=== PATIENT | female | born 1985 | race Caucasian/White ===

== ENCOUNTER 2023-04-21 11:37 | Emergency (ER) | payer OTHER, MEDICARE ==
[~2023-04-21] VITALS: Ht 167.6 cm; Wt 44.8 kg
[~2023-04-21 11:37] MED LIST: CA C1TAB89 PO; LACT1CAP64 PO; METH-402 PO; MULT-1074 PO; THY60T PO
[2023-04-21 11:45] VITALS: TEMP 98
[2023-04-21 12:18] LABS: BILIRUBIN,URINE NEGATIVE (Neg); CLARITY,URINE CLEAR (Clear); COLOR,URINE STRAW (Yellow); GLUCOSE, URINE NEGATIVE (Neg); KETONES,URINE NEGATIVE (Neg); LEUKOCYTE ESTERASE ,URINE NEGATIVE (Neg); NITRITES, URINE NEGATIVE (Neg); OCCULT BLOOD,URINE NEGATIVE (Neg); PH,URINE 7.5 (4.8-8.0); PROTEIN,URINE NEGATIVE (Neg); UROBILINOGEN,URINE 0.2 E.U/dL (0.2-1.0)
[2023-04-21 12:19] LABS: URINE HCG NEGATIVE (NEG)
[2023-04-21 12:29] LABS: UA COLLECTION TYPE CLN CATCH MIDSTREAM
[2023-04-21 13:19] LABS: HEMOGLOBIN 13.5 g/dl (12.0-16.0); LYMPHOCYTES # (AUTO) 1.2 X10'3 (1.1-4.8); MONOCYTES # (AUTO) 0.3 X10'3 (0-0.9); NEUTROPHILS # (AUTO) 1.9 X10'3 (1.8-7.7); WHITE BLOOD COUNT 3.5 X10'3 (4.5-11.0)
[2023-04-21 13:21] LABS: BASOPHILS % (AUTO) 1.2 % (0-1); EOSINOPHILS % (AUTO) 0.4 % (0-6); HEMATOCRIT 40.3 % (35.0-45.0); MEAN CORPUSCULAR HEMOGLOBIN 31.5 PG (27.0-31.0); MEAN CORPUSCULAR HGB CONC 33.6 g/dL (33.0-36.5); MEAN CORPUSCULAR VOLUME 93.8 FL (78-98); MEAN PLATELET VOLUME 11.6 FL (7.4-10.4); MONOCYTES % (AUTO) 7.7 % (2-12); NEUTROPHILS % (AUTO) 55.7 % (42-75); PLATELET COUNT 165 X10'3 (140-440); RED CELL DISTRIBUTION WIDTH 12.8 % (11.5-14.5)
[2023-04-21 14:04] LABS: ALANINE AMINOTRANSFERASE 30 U/L (12-78); ALBUMIN 4.3 G/DL (3.4-5.0); ALBUMIN/GLOBULIN RATIO 1.1 (1.1-1.5); ALKALINE PHOSPHATASE 68 IU/L (46-116); ANION GAP 13 (8-16); ASPARTATE AMINO TRANSFERASE 29 U/L (10-37); BILIRUBIN,TOTAL 0.9 MG/DL (0.1-1.0); BLOOD UREA NITROGEN 9 MG/DL (7-18); BUN/CREATININE RATIO 13.6 (10.0-20.0); CHLORIDE 103 MMOL/L (99-107); CREATININE 0.66 MG/DL (0.40-0.90); GLUCOSE 84 MG/DL (70-104); LIPASE 35 U/L (16-77); POTASSIUM 3.9 MMOL/L (3.5-5.1); SODIUM 141 MMOL/L (135-145); TOTAL CARBON DIOXIDE 25.5 MMOL/L (24-32); TOTAL PROTEIN 8.2 G/DL (6.4-8.2); eCRCL 84 ML/MIN; eGFR > 90 ML/MIN
[2023-04-21] MEDS ORDERED: CefTRIAXone 2gm/D5W 50ml BAG 50 ML IV ONE ×2 (14:55→15:03)
[2023-04-21] MEDS ORDERED: azithromycin 250mg tablet PO ONE (14:55)
[2023-04-21 14:59] VITALS: BP 118/74; PULSE 63; RESP 16; O2SAT 100
[2023-04-21] MEDS: mag hydrox/Alum hydrox/simeth 30ml oral suspension PO ONE (14:59)
[2023-04-21] MEDS: LIDOcaine Viscous 15ml cup MM PRN (14:59)
[2023-04-21] MEDS ORDERED: LANS30CA37 PO (16:22)
[2023-04-21] MEDS: pantoprazole 40mg Tablet.DR PO ONE (16:41)
== END 2023-04-21 16:57 | disposition home or self-care (01) ==
LOC: ER 11:37
DX: K29.00 Acute gastritis without bleeding (principal); R10.13 Epigastric pain; Z79.899 Other long term (current) drug therapy
CPT/HCPCS: 36415; 76700; 80053; 81003; 81025; 83605; 83690; 85025; 87040; 99284

== ENCOUNTER 2023-05-11 21:37 | Emergency (ER) | payer OTHER, MEDICARE ==
[~2023-05-11] VITALS: Ht 167.6 cm; Wt 42.3 kg
[~2023-05-11 21:37] MED LIST changes: +LANS30CA37 PO
[2023-05-11 22:31] LABS: BASOPHILS # (AUTO) 0.1 X10'3 (0-0.2); BASOPHILS % (AUTO) 0.8 % (0-1); EOSINOPHILS % (AUTO) 0.6 % (0-6); HEMATOCRIT 36.8 % (35.0-45.0); HEMOGLOBIN 12.7 g/dl (12.0-16.0); LYMPHOCYTES # (AUTO) 2.2 X10'3 (1.1-4.8); LYMPHOCYTES % (AUTO) 27.5 % (21-51); MEAN CORPUSCULAR HEMOGLOBIN 31.4 PG (27.0-31.0); MEAN CORPUSCULAR HGB CONC 34.5 g/dL (33.0-36.5); MEAN CORPUSCULAR VOLUME 91.1 FL (78-98); MEAN PLATELET VOLUME 10.6 FL (7.4-10.4); MONOCYTES # (AUTO) 0.5 X10'3 (0-0.9); MONOCYTES % (AUTO) 5.7 % (2-12); NEUTROPHILS # (AUTO) 5.2 X10'3 (1.8-7.7); NEUTROPHILS % (AUTO) 65.4 % (42-75); PLATELET COUNT 173 X10'3 (140-440); RED BLOOD COUNT 4.04 X10'6 (4.20-5.60); RED CELL DISTRIBUTION WIDTH 12.7 % (11.5-14.5); WHITE BLOOD COUNT 7.9 X10'3 (4.5-11.0)
[2023-05-11 22:44] LABS: ANION GAP 6 (8-16); BLOOD UREA NITROGEN 8 MG/DL (7-18); CALCIUM 9.1 MG/DL (8.5-10.1); CHLORIDE 100 MMOL/L (99-107); CREATININE 0.73 MG/DL (0.40-0.90); GLUCOSE 96 MG/DL (70-104); POTASSIUM 3.4 MMOL/L (3.5-5.1); SODIUM 136 MMOL/L (135-145); TOTAL CARBON DIOXIDE 29.7 MMOL/L (24-32); eCRCL 72 ML/MIN; eGFR > 90 ML/MIN
[2023-05-11 23:28] LABS: THYROID STIMULATING HORMONE 7.08 ulU/ml (0.34-4.50)
[2023-05-11] MEDS: potassium Cl 20 mEq SR tablet PO STA (23:46)
[2023-05-11 23:47] LABS: BILIRUBIN,URINE NEGATIVE (Neg); CLARITY,URINE CLEAR (Clear); COLOR,URINE STRAW (Yellow); GLUCOSE, URINE NEGATIVE (Neg); KETONES,URINE NEGATIVE (Neg); LEUKOCYTE ESTERASE ,URINE SMALL (Neg); NITRITES, URINE NEGATIVE (Neg); OCCULT BLOOD,URINE TRACE-INTACT (Neg); PROTEIN,URINE NEGATIVE (Neg); URINE HCG NEGATIVE (NEG); UROBILINOGEN,URINE 0.2 E.U/dL (0.2-1.0)
[2023-05-11 23:47] LABS: D-DIMER < 0.19 MG/L FEU (0-0.50)
[2023-05-11 23:48] LABS: UA COLLECTION TYPE CLN CATCH MIDSTREAM
[2023-05-12 00:01] LABS: SQUAMOUS EPITHELIAL CELL,UR FEW /LPF (FEW); TRANSITIONAL EPI CELLS,URINE FEW /HPF
[2023-05-12 00:02] LABS: BACTERIA,URINE FEW /HPF (Neg); RBC,URINE 0-2 /HPF (0-2)
[2023-05-12 00:03] LABS: WBC CLUMPS,URINE FEW /HPF (NEGATIVE)
[2023-05-12] MEDS ORDERED: THY15T PO (01:34)
[2023-05-12] MEDS ORDERED: METH4TAB81 PO (01:34)
[2023-05-12 01:47] VITALS: BP 109/67; PULSE 72; RESP 16; TEMP 98.1; O2SAT 98
== END 2023-05-12 01:49 | disposition home or self-care (01) ==
LOC: ER 21:38
DX: R07.89 Other chest pain (principal); R09.1 Pleurisy; Z79.899 Other long term (current) drug therapy
CPT/HCPCS: 36415; 71045; 80048; 81001; 81025; 84443; 84484; 85025; 85379; 93005; 99285

== ENCOUNTER 2023-06-06 08:21 | Outpatient (CLI) | payer OTHER, MEDICARE ==
[~2023-06-06 08:21] MED LIST changes: +METH4TAB81 PO; +THY15T PO
[2023-06-06 09:59] LABS: CALCIUM 9.1 MG/DL (8.5-10.1); CHOL/HDL RATIO 2.2 (0.00-4.99); CHOLESTEROL 168 MG/DL (0-200); FERRITIN 78 NG/ML (8-252); FREE T4 (FREE THYROXINE) 0.86 NG/DL (0.73-1.40); HDL CHOLESTEROL 78 MG/DL (35-60); LDL CHOLESTEROL 85 MG/DL (50-100); POTASSIUM 3.6 MMOL/L (3.5-5.1); THYROID STIMULATING HORMONE 1.65 ulU/ml (0.34-4.50); TRIGLYCERIDES 20 MG/DL (20-135); URIC ACID 2.9 MG/DL (2.5-6.2)
[2023-06-06 10:20] LABS: CRP-CARDIAC RISK < 0.100 MG/L
[2023-06-06 10:22] LABS: C-REACTIVE PROTEIN < 0.05 MG/DL (0.0-0.5)
[2023-06-06 10:32] LABS: HEMOGLOBIN A1C 5.5 % (4.5-6.2)
[2023-06-06 10:43] LABS: % IRON SATURATION 26 % (11-46); IRON 88 UG/DL (49-151); TOTAL IRON BINDING CAPACITY 334 UG/DL (259-388)
[2023-06-07 12:21] LABS: ANTINUCLEAR ANTIBODIES Negative (Negative); HOMOCYSTEINE, PLASMA 11.3 umol/L (0.0-14.5); INSULIN 3.1 uIU/mL (2.6-24.9)
[2023-06-07 19:06] LABS: ESTRADIOL 20.5 pg/mL (.); PROGESTERONE 0.2 ng/mL (.)
[2023-06-08 20:53] LABS: COPPER, PLASMA 82 ug/dL (80-158)
[2023-06-10 18:39] LABS: SELENIUM, SERUM/PLASMA 195 ug/L (93-198)
== END 2023-06-06 23:59 | disposition home or self-care (01) ==
LOC: LAB 08:21
PROVIDERS: ATTEND Chiropractor
DX: M54.50 Low back pain, unspecified (principal); R53.82 Chronic fatigue, unspecified; M54.2 Cervicalgia; M54.6 Pain in thoracic spine
CPT/HCPCS: 36415; 80061; 82306; 82310; 82607; 82627; 82670; 82728; 83036; 83090; 83525; 83540; 83550; 83735; 84132; 84144; 84255; 84439; 84443; 84550; 86038; 86140